=== PATIENT | female | born 1955 ===

== ENCOUNTER 2016-06-19 15:06 | Emergency (ER) | payer OTHER ==
[~2016-06-19] VITALS: Ht 157.5 cm; Wt 63.5 kg
[2016-06-19] MEDS ORDERED: SODIUM CHLORIDE 0.9% 1,000 ML IV ONE (15:46)
[2016-06-19 16:21] LABS: Basophils # (auto) 0 uL; Basophils % (auto) 0.4 % (0.0-2.0); Eosinophils # (auto) 0.1 uL; Eosinophils % (auto) 0.5 % (0.0-7.0); Hematocrit 45.4 % (36.0-46.0); Hemoglobin 15.1 g/dL (12.2-16.2); Lymphocytes # (auto) 1.3 uL; Lymphocytes % (auto) 11.6 % (10.0-50.0); Mean Corpuscular Hgb Conc. 33.2 g/dL (32.0-36.0); Mean Corpuscular Volume 90.6 fL (80.0-100.0); Mean Platelet Volume 8.8 fL (7.4-10.4); Monocytes # (auto) 0.6 uL; Monocytes % (auto) 5.7 % (0.0-12.0); Neutrophils # (auto) 9.1 uL; Neutrophils % (auto) 81.8 % (37.0-80.0); Platelet Count (auto) 240 10^3/uL (140-450); White Blood Cell 11.1 10^3/uL (4.4-10.8)
[2016-06-19 16:40] LABS: Albumin 3.7 g/dL (3.4-5.0); BUN/Creatinine Ratio 23.4; Calcium 8.9 mg/dL (8.5-10.1); Magnesium 2.2 mg/dL (1.6-2.6)
[2016-06-19 16:43] LABS: Bilirubin, Total 0.5 mg/dL (0.2-1.0); Total Protein 7.8 g/dL (6.4-8.2)
[2016-06-19 16:45] LABS: Potassium 2.8 mmol/L (3.5-5.1)
[2016-06-19] MEDS ORDERED: POTASSIUM CHL 20 Meq TABLET PO ONE ×2 (17:00→17:19)
[2016-06-19 19:20] VITALS: BP 118/76
== END 2016-06-19 19:54 | disposition short-term general hospital (02) ==
LOC: ER 15:06
DX: S82.62XA Displaced fracture of lateral malleolus of left fibula, initial encounter for closed fracture (principal); E87.6 Hypokalemia; R55 Syncope and collapse; R42 Dizziness and giddiness; I10 Essential (primary) hypertension; E07.9 Disorder of thyroid, unspecified; X58.XXXA Exposure to other specified factors, initial encounter; Y93.89 Activity, other specified; Y99.8 Other external cause status; Y92.89 Other specified places as the place of occurrence of the external cause
CPT/HCPCS: 29515; 36415; 73610; 80053; 83735; 84484; 85025; 93005; 94761